=== PATIENT | male | born 1990 | race Hispanic/Latino ===

== ENCOUNTER 2020-05-17 14:55 | Emergency (ER) | payer OTHER ==
[~2020-05-17] VITALS: Ht 170.2 cm; Wt 97.5 kg
[2020-05-17] MEDS ORDERED: HYDROXYZINE HCL50 MG PO (15:28)
[2020-05-17] MEDS ORDERED: SERTRALINE HCL50 MG PO (15:28)
[2020-05-17] MEDS ORDERED: TOPROL XL50 MG PO (15:29)
[2020-05-17] MEDS ORDERED: OMEPRAZOLE20 MG PO (15:30)
== END 2020-05-17 16:50 | disposition home or self-care (01) ==
LOC: ED 14:55
DX: S01.411A Laceration without foreign body of right cheek and temporomandibular area, initial encounter (principal); R04.0 Epistaxis; Y04.0XXA Assault by unarmed brawl or fight, initial encounter; I10 Essential (primary) hypertension; F17.200 Nicotine dependence, unspecified, uncomplicated; Z79.899 Other long term (current) drug therapy
CPT/HCPCS: 70450; 99284-25